=== PATIENT | female | born 1955 | race Caucasian/White ===

== ENCOUNTER 2019-10-21 10:30 | Inpatient (IN) | payer OTHER ==
[~2019-10-21] VITALS: Ht 160 cm; Wt 72.6 kg
[2019-10-21 10:31] VITALS: BP 135/76
[2019-10-21] MEDS ORDERED: NOHOMEMEDICATIONS (10:57)
[2019-10-21 11:18] LABS: ABSOLUTE NEUTROPHILS 2.8 thou/uL (1.4-8.2); BASOPHILS 0.8 % (0.0-2.0); HEMOGLOBIN 13.6 gm/dL (12.0-15.0); LYMPHOCYTES 35.6 % (24.0-44.0); MCH 33.3 pg (26.0-34.0); MCHC 34.1 g/dL (28.0-37.0); MCV 97.8 fL (80.0-100.0); MONOCYTES 8.9 % (1.0-8.0); PLATELET COUNT 237 thou/uL (150-400); POLYS 53.7 % (36.0-66.0); RBC 4.09 mil/uL (4.20-5.00); RDW 15.1 % (10.5-14.5); WBC 5.2 thou/uL (4.0-11.0)
[2019-10-21 11:21] LABS: CALCIUM 8.4 mg/dL (8.5-10.1); CREATININE 0.9 mg/dL (0.6-1.0); POTASSIUM 3.9 mmol/L (3.5-5.1)
[2019-10-21 11:40] LABS: APTT 26.9 Seconds (24.5-32.8)
[2019-10-21 11:52] VITALS: BP 135/76
[2019-10-21 13:02] VITALS: BP 120/69
[2019-10-21 13:30] VITALS: BP 123/58
[2019-10-21] MEDS ORDERED: IBUPROFEN200 MG (16:12)
[2019-10-21 18:55] VITALS: BP 129/60
--- NOTE | 2019-10-21 18:59 | NUR ---
PT RECEIVED FROM THE ER AT 1330 ALERT AND IN PAIN FROM TRANSFER OVER TO BED. CONSULT CALLED TO DR. JOHNSON'S OFFICE AND PA CAME TO SEE PT THIS AFTERNOON. PLAN FOR FEMUR REPAIR IN EARLY AM. IV MORPHINE GIVEN W/ GOOD RELIEF. VOIDED ON BEDPAN. EATING AND DRINKING WELL. IV FLUIDS INFUSING. NASAL COVID SWAB OBTAINED AND TAKEN TO LAB AT THIS TIME.
--- NOTE | 2019-10-22 02:55 | NUR ---
ASSUMED PT CARE APPROX 1899.PT C/O PAIN ON HER L HIP,MANAGED WITH MED.PT REFUSED TO GET UP TO THE COMMODE TO URINATE DUE TO PAIN,VENDING ROUTE DRIVER ON DUTY NOTIFIED,ORDER NOTED TO PUT A CRUZ IN.PT C/O NAUSEA,ORDER NOTED AND CARRIED.PT REPOSITIONED WHILE IN BED.PT CONT ON IVF.PT NPO AT THIS TIME FOR A PROCEDURE IN THE AM.PT RESTING ON HER BED AT THIS TIME.FALL PRECAUTIONS IN PLACE,CALL LIGHT WITHIN REACH.
[2019-10-22 04:11] VITALS: BP 115/84
[2019-10-22 07:49] VITALS: BP 128/62
--- NOTE | 2019-10-22 13:54 | NUR ---
Case opened to follow for dc planning. Label Press Operator spoke with the pt via phone. She is waiting to go to surgery for a femur fx this afternoon. Covid test came back negative. The pt is a&ox4 and indicates that she lives with her friend of many years Howard in his home. She has lived with him for many years and gets free room and board in exchange for helping lookout for him and the house hold. He is able to stay by himself while she is here. She notes that her dtr Radha and son Lucio stop by and check on him as well. She reports tripping over a dog bed leading to her fall. She does acknowlege daily ethol use and she is a smoker. She is anticipating staying with her dtr Radha [place] as she has a den where she can be on one level during her recovery. She has a couple of steps to enter her home. She has access to a rwalker, rolator walker, bsc and a cane as needed. Her dtr works in a care home. She does not have any health insurance in place. She has been trying to connect with the Social Security Admin to see if she is eligiable for SS benefits or SSI now that she is 64. She has not worked or pay into the system in many years as she has not formally worked. She is trying to establish residency at [facility] but does not have any thing or even a bank account in her name. [place]. Referral being sent to [employer]. Pt is agreeable. She states Dtr Radha and son Lucio are her primary contacts. Both can get info on how she is doing. Howard can get info as well but does not do well on the phone due to aphasia. Support provided. CM role introduced. Will see how the pt does postop with therapy to determine if the pt can dc home with her dtr or if she will need an acute rehab referral.
--- NOTE | 2019-10-22 14:09 | NUR ---
FAXED FACE SHEET TO JOHNATHON AT [facility] TO HELP WITH MEDICAID FRANCIS. AND SSI AND POSS MEDICARE RECEIVED CONFIRMAITON.
[2019-10-22 15:25] VITALS: BP 125/55
--- NOTE | 2019-10-22 16:12 | NUR ---
ASSUMED CARE OF THE PT AT 0700. SX WAS POSTPONED DUE TO COVID RESULTS NOT BEING READY. PAIN CONTROLLED BY PAIN MEDS, SEE EMAR. L FOREARM DRY AND INTACT. CRUZ INTACT AND POTENT. FALL PRECAUTIONS IN PLACE, BED IN THE LOWEST POSITION AND CALL LIGHT IS WITHIN REACH. WILL CONTINUE TO MONITOR THE PT.
[2019-10-22 21:25] VITALS: BP 116/69
--- NOTE | 2019-10-23 00:11 | NUR ---
PT AOX4. PT REPORTS PAIN IN LLE AND HIPS, NOTED TO WORSEN WITH MOVEMENT. PT RECEIVING PRN PO HYDROCODONE Q4HR AND PRN IV MORPHINE Q3HR. PT TOLERATING PO INTAKE OF FLUIDS AND REGULAR DIET. FREQUENT REPOSITIONING ENCOURAGED, PT INDEPENDENT WITH SHIFTING WHILE IN BED. PT CONTINUES TO REST IN BED. PT ENCOURAGED TO NOTIFY STAFF FOR ALL NEEDS. CALL LIGHT WITHIN REACH, BED ALARM ON, BED IN LOWEST POSITION, BED LOCKED. WILL CONTINUE TO MONITOR.
[2019-10-23 04:20] VITALS: BP 127/52
[2019-10-23 08:30] VITALS: BP 128/64
--- NOTE | 2019-10-23 15:27 | NUR ---
PT AND OT SAW PT AND GOAL/PLAN IS FOR PT TO BE ABLE TO GO TO HER DTRS HOUSE UPON DISCHARGE. PT MAY BE ABLE TO PROGRESS TO THAT GOAL WORKING ON MAINTAINING PAIN. CM TO FOLLOW INDICATED WITH DC PLANNING.
[2019-10-23 16:25] VITALS: BP 124/65
--- NOTE | 2019-10-23 20:09 | NUR ---
PT CARE ASSUMED AT 0700.A&Ox4PT WAS ANXIOUS TO GET UP THIS MORNING AND WANTED TO WAIT FOR PT. PAIN MANAGED WELL WITH PO MEDICATIONS NOW. EDUCATED ON ENEED OF IV PAIN MEDICATION. NANCY WILL BE DC'D IN EAM PER PT REQUEST TO HAVE ONE MORE NIGHT OF GOOD SLEEP AND WORK ON PAIN MANAGEMENT. PT UP IN THE RECLINER MOST OF THE DAY. PEPTO BISMO REQUESTED BY PT FOR HEARTBURN, PRN IN EMAR. PT IS FULL WEIGHT BEARING TOLERATED. PT/OT ON BOARD. WEANED OFF OF O2 AND NOW SATING AT 96% ON ROOM AIR. FALL PROTOCOL IN PLACE. POST OP PE PROTOCOL IN PLACE. CALL LIGHT IN REACH. PT DECLINED FAMILY UPDATE SHE UPDATES HER OWN FAMILY. WILL CONTINUE TO UPDATE. REPORT GIVEN TO RNVIOLETTA
[2019-10-23 20:27] VITALS: BP 126/58
--- NOTE | 2019-10-24 02:53 | NUR ---
ASSUMED PT CARE AT 1900. PT REPORTS PAIN 5/10, MANAGED WITH PO PAIN MEDS. L HIP DRESSING D/C/I WITH FRESH ICE PACK APPLIED. VSS. RESTING COMFORTABLY IN BED WHEN REPORT WAS PASSED TO [facility] AT 2245.
--- NOTE | 2019-10-24 03:32 | NUR ---
PT AOX4. PT REPORTING SEVERE PAIN IN LEFT HIP AND LEFT THIGH. PT RECEIVING PRN PO NORCO Q4HR AND PRN IV MORPHINE Q3HR. PT REPORTS NORCO INEFFECTIVE. PROTOTYPE SEWER NOTIFIED, RECEIVED ORDERS TO DISCONTINUE NORCO, START PERCOCET 5/325 2TABS Q4HR PRN, DISCONTINUE FLUIDS AND SALINE LOCK IV. PT REFUSING TO AMBULATE UNLESS WITH PHYSICAL THERAPY DUE TO REPORTS OF PAIN. PT NOTED TO TENSE WITH REPOSITIONING. ICE PACKS REMAIN IN PLACE. PT TOLERATING PO INTAKE OF FLUIDS AND REGULAR DIET. ENCOURAGED PT TO NOTIFY STAFF FOR ALL NEEDS. CALL LIGHT WITHIN REACH, BED ALARM ON, BED IN LOWEST POSITION, BED LOCKED. WILL CONTINUE TO MONITOR.
[2019-10-24 08:03] VITALS: BP 110/54
--- NOTE | 2019-10-24 10:58 | NUR ---
ON-GOING ASSESSMENT: PT IS DOING WELL AND PROGRESSING TOWARDS DISCHARGE GOALS. PT IS A POSSIBLE DISCHARGE OVER THE WEEKEND AND PLANS ON GOING TO HER DAUGHTER MICHAEL BAEZ AT DISCHARGE WITH HOME HEALTH. PT CURRENTLY HAS NO INSURANCE BUT CM SPOKE [facility] WILLING TO DO [facility]ITS WITH PATIENT AND DR. CHAND HAS AGREED TO FOLLOW FOR HOME HEALTH ORDERS. CM PROVIDED [facility] WITH HER DAUGHTER MICHAEL ADDRESS [address] [address]. PT HAS A WALKER AT HOME. PLANS ARE FOR PATIENT TO DISCHARGE THIS WEEKEND WITH [facility]. AT TIME OF DISCHARGE CONTACT [facility] TO NOTIFY THEM AT [phone] AND FAX D/C ORDERS/DUMMARY TO [phone].
[2019-10-24 13:26] VITALS: BP 110/54
[2019-10-24 16:07] VITALS: BP 99/59
--- NOTE | 2019-10-24 16:14 | NUR ---
ASSUMED CARE OF THE PT AT 0700. PT PAIN IS CONTROLLED BY PAIN MEDS,EXPLAINED TO PT THAT ORAL MEDS NEED TO BE TAKEN VS IV MEDS TO PREPARE FOR D/C, PT UNDERSTOOD. PT REFUSED ENOXAPRIN SHOT, STATED SHE WEARS SCD'S. PTS IV INFILTRATED AND REMOVED. ICE PACK ON L FEMUR, KAZ HOSE IN PLACE. PT USES BSC. CALL LIGHT WITHIN REACH, BED IN THE LOWEST POSITION, BED/CHAIR ALARM ON. FALL PRECAUTTIONS IN PLACE. WILL CONTINUE TO MONITOR THE PT.
[2019-10-24 19:30] VITALS: BP 101/54
[2019-10-24 20:30] VITALS: BP 123/71
[2019-10-25 04:10] VITALS: BP 122/49
--- NOTE | 2019-10-25 07:43 | NUR ---
PT C/O PAIN ON HER L HIP,MANAGED WITH MED PER PT'S REQUEST.PT UP TO BSC WITH ASSIST.PER REPORT,PT WITH NO IV ACCESS,PHYSICIAN AWARE.DRSG TO HER L HIP C/D/I.PT LOOKING FORWARD TO BE DC SOON.REPORT TO AM NURSE.
[2019-10-25 08:57] VITALS: BP 107/67
--- NOTE | 2019-10-25 09:13 | O ---
[facility] [place] [address] OPERATIVE REPORT Name: ANOOP SOLANO Room #: 442-P ADM IN M.R.#: [id number] Admission: 10/21/19 Attend Phys: Salazar Edmond MD Discharge: Date of : 53 Report #: [id number] THIS REPORT FOR: cc: [facility] - Family physician unknown MARII - Family physician unknown Tal Lawson MD ~ CC: [facility] unknown Marquez Munoz PREOPERATIVE DIAGNOSIS: Left hip intertrochanteric hip fracture. POSTOPERATIVE DIAGNOSIS: Left hip intertrochanteric hip fracture. PROCEDURE: Left hip intramedullary nail. SURGEON: Dr. Tal Lawson. ATTRACTION ATTENDANT: None. ANESTHESIA: General. ESTIMATED BLOOD LOSS: 50 mL. DRAINS: No drains. TOURNIQUETS: No tourniquets. COMPLICATIONS: No complications. DESCRIPTION OF PROCEDURE: The patient was brought to the operating room where she was placed under general anesthesia. Once under adequate general anesthesia, she was placed onto the fracture table. A closed reduction maneuver was then performed and traction placed on the affected extremity. Excellent reduction of the fracture was achieved. The left hip was then prepped and draped in a sterile manner. Utilizing fluoroscopy for guidance, a 2 cm incision proximal to the tip of the greater trochanter was made. The curved cannulated awl was then placed down the tip of the greater trochanter. A guidewire for the intramedullary nail was then placed. The intramedullary nail was then placed and impacted with a mallet. Once in satisfactory position, a lateral 2 cm incision was made for placement of the guidewire for the blade. The guidewire was then placed into the center-center position of the femoral head and under fluoroscopic guidance and subsequently the reamer was used for the blade. Once the reamer was used, the blade was then placed and impacted into the correct position. Excellent fixation and alignment was achieved as verified under fluoroscopy. This was then locked proximally with the proximal locking screw. Distally, a 1 cm incision was made for placement of the transverse locking screw and the guide for the transverse screw was then placed with a 36 mm screw placed [address] [address] OPERATIVE REPORT Name: ARIANOOP VIEYRA Room #: 442-P [facility].#: [id number] Admission: 10/21/19 Attend Phys: Salazar Edmond MD Discharge: Date of : 53 Report #: [id number] across the femur. Excellent fixation was achieved. Once complete, the wounds were irrigated copiously. Final x-ray images were taken, which showed excellent alignment and fixation. The wounds were irrigated copiously and closed with 2-0 Vicryl for subcutaneous tissues and nicho for the skin. Wounds were dressed with Xeroform, 4 x 4s, and sterile soft compressive dressing was placed. There were no complications from the procedure. The patient tolerated the procedure well and went to the recovery room without incident. <ELECTRONICALLY SIGNED> By: Tal Lawson MD 10/25/19 0913 [id number] Tal Lawson MD /nt
[2019-10-25 17:03] VITALS: BP 112/65
--- NOTE | 2019-10-25 17:19 | NUR ---
ASSUMED CARE OF THE PT AT 0700. PT WANTS PAIN MEDS TO BE GIVEN EVERY FOUR HOURS, EVEN IF ASLEEP, EDUCATED PT ON HOW PRN MEDS ARE GIVEN. ICE PACK, AND DRESSING IN PLACE, CHANGED DRESSING PER ORDERS. PT HAS NO IV ACCESS, PER DOCTOR NO IV NECESSARY. FALL PRECAUTIONS IN PLACE, BED IN THE LOWEST POSITION/ BED ALARM ON AND CALL LIGHT IS WITHIN REACH. WILL CONTINUE TO MONITOR THE PT.
--- NOTE | 2019-10-25 19:41 | NUR ---
1900 ASSUMED CARE OF PT AFTER BEDSIDE REPORT, PT RESING IN BED NO S/S OF DISTRESS. 193 BASELINE ASSESSMENT COMPLETED, PT UP TO BEDSIDE COMMODE WITH MINIMAL ASSIST, BLE WITH PEDAL PULSES PALPABLE, NEGATIVE MILANA'S, PUSHES AND PULLS EQUAL BILATERALLY AND STRON, PT REFUSING KAZ HUANG AND SCD'S STATING SHE WILL MOVE HER LE HOURLY, DRSG TO L HIP C/D/I, BRUISING NOTED BUT SOFT AND NOT PAINFUL, PT AWAKE ALERT AND ORIENTED X 4 WITH PAIN RATED 4/10 PT REQUESTING PAIN MEDICATION Q 4 HOURS, I EDUCATED PATIENT ABOUT IMPORTANCE OF PRN VS SCHEDULED PT STATES UNDERSTANDING, WILL CONTINUE TO MONITOR HOURLY AND FALL PRECAUTIONS IN PLACE, ZALDIVAR GIVEN SECONDARY TO CALL LIGHT SYSTEM FAILURE.
[2019-10-25 19:50] VITALS: BP 118/47
[2019-10-26 03:50] VITALS: BP 117/70
[2019-10-26 10:19] VITALS: BP 110/54
[2019-10-26 15:12] VITALS: BP 112/51
--- NOTE | 2019-10-26 16:47 | NUR ---
PT A&OX4. NO IV PRESENT. SUSU TO L FEMUR ARE C/D/I. DRSG REMOVED OPTIFORM WITH BORDER REPLACED. DC INSTRUCTIONS, F/U APPOINTMENT AND SCRIPT GIVEN. PT WAITING FOR RIDE. CALL LIGHT W/I REACH.
--- NOTE | 2019-10-26 18:33 | NUR ---
PT ESCORTED TO ED ENTRANCE BY FILM SPOOLER WHERE DAUGHTER IS WAITING TO BEEKEEPER FARMER.
== END 2019-10-26 18:00 | disposition home health service (06) | DRG 482 ==
LOC: ER 10:30 → 4S 12:25 → EROBS 12:25 → 4S 13:02
PROVIDERS: Emergency Medicine; ADMIT Surgery
PROC: 0QS736Z Reposition Left Upper Femur with Intramedullary Internal Fixation Device, Percutaneous Approach (ICD-10-PCS; principal; 2019-10-22)
DX: S72.142A Displaced intertrochanteric fracture of left femur, initial encounter for closed fracture (principal); F17.210 Nicotine dependence, cigarettes, uncomplicated; Z88.0 Allergy status to penicillin; Y93.89 Activity, other specified; Y99.8 Other external cause status; Z03.818 Encounter for observation for suspected exposure to other biological agents ruled out; W01.0XXA Fall on same level from slipping, tripping and stumbling without subsequent striking against object, initial encounter; Y92.098 Other place in other non-institutional residence as the place of occurrence of the external cause
CPT/HCPCS: 10100; 10195; 50010; 50101; 50386; 50635; 51412; 51538; 51817; 52304; 56524; 57092; 57804; 57901; 62110; 62900; 70005